=== PATIENT | female | born 1975 | race Caucasian/White ===

== ENCOUNTER 2016-05-06 05:17 | Emergency (ER) | payer OTHER ==
[~2016-05-06] VITALS: Ht 170.1 cm; Wt 90.7 kg
[~2016-05-06 05:17] MED LIST: BACTRIM DS 8001 TA1 PO; CLARITIN10 MG PO; DAYPRO600 M1 PO; EPIPEN 2-PAK1 MG/M1 MR; FLAGYL500 MG PO; FLEXERIL10 MG PO; HYDR25T PO; IBU-8800 MG PO; KEFLEX500 MG PO; MOTRIN800 MG PO; PREDNICOT10 MG PO; ROBAXIN750 MG PO; SEPTRA DS 800 M1 TAB PO; TESSALON PERLE200 MG PO; ULTRAM50 MG PO
[2016-05-06 05:24] VITALS: BP 147/104
[2016-05-06] MEDS ORDERED: BACTRIM DS 8001 TA1 PO (06:58)
[2016-05-07 17:06] LABS: LYME AB/TOTAL IMMUNOGLOBULINS <0.91 ISR (0.00-0.90)
== END 2016-05-06 07:04 | disposition home or self-care (01) ==
LOC: ED 05:17
PROVIDERS: Emergency Medicine
DX: L03.311 Cellulitis of abdominal wall (principal); L03.314 Cellulitis of groin; F17.200 Nicotine dependence, unspecified, uncomplicated; Z88.0 Allergy status to penicillin

== ENCOUNTER 2017-08-11 20:07 | Emergency (ER) | payer OTHER ==
[~2017-08-11] VITALS: Ht 170.1 cm; Wt 90.7 kg
[2017-08-11 20:07] VITALS: BP 139/77
[2017-08-11] MEDS ORDERED: DOXYCYCLINE100 M3 PO (20:16)
== END 2017-08-11 20:25 | disposition home or self-care (01) ==
LOC: ED 20:07
DX: L03.116 Cellulitis of left lower limb (principal); L03.115 Cellulitis of right lower limb; F17.200 Nicotine dependence, unspecified, uncomplicated; Z88.0 Allergy status to penicillin

== ENCOUNTER 2017-09-05 15:11 | Emergency (ER) | payer OTHER ==
[~2017-09-05] VITALS: Wt 81.6 kg
[~2017-09-05 15:11] MED LIST changes: +DOXYCYCLINE100 M3 PO
[2017-09-05 15:16] VITALS: BP 114/82
[2017-09-05] MEDS ORDERED: SEPTDS PO (16:02)
== END 2017-09-05 16:23 | disposition home or self-care (01) ==
LOC: ED 15:11
DX: S90.561A Insect bite (nonvenomous), right ankle, initial encounter (principal); L03.115 Cellulitis of right lower limb; Z88.0 Allergy status to penicillin; W57.XXXA Bitten or stung by nonvenomous insect and other nonvenomous arthropods, initial encounter; Y93.89 Activity, other specified; Y92.89 Other specified places as the place of occurrence of the external cause; Y99.9 Unspecified external cause status

== ENCOUNTER 2018-12-29 15:23 | Emergency (ER) | payer OTHER ==
[~2018-12-29] VITALS: Ht 167.6 cm; Wt 81.6 kg
[~2018-12-29 15:23] MED LIST changes: +CLINDAMYCIN HC300 MG PO; +SEPTDS PO
[2018-12-29 15:24] VITALS: BP 151/80
[2018-12-29] MEDS ORDERED: CLINDAMYCIN HC300 MG PO (15:36)
[2018-12-29] MEDS ORDERED: PREDNISONE20 M1 PO (15:36)
== END 2018-12-29 15:53 | disposition home or self-care (01) ==
LOC: ED 15:23
DX: S60.561A Insect bite (nonvenomous) of right hand, initial encounter (principal); L08.9 Local infection of the skin and subcutaneous tissue, unspecified; Z88.0 Allergy status to penicillin; Z79.2 Long term (current) use of antibiotics; W57.XXXA Bitten or stung by nonvenomous insect and other nonvenomous arthropods, initial encounter; Y93.89 Activity, other specified; Y92.89 Other specified places as the place of occurrence of the external cause; Y99.8 Other external cause status

== ENCOUNTER 2019-01-16 11:40 | Emergency (ER) | payer OTHER ==
[~2019-01-16] VITALS: Ht 170.1 cm; Wt 90.7 kg
--- NOTE | ~2019-01-16 | EKG ---
[place], [place] ELECTROCARDIOGRAM REPORT NAME: GABE MARIN UNIT #: [id number] ROOM: DOCTOR: KERLINE DRAFT REPORT BIRTHDATE: [address] [facility] Test Date: 2019-01-16 Test Time: 12:06:54 Pat Name: GABE MARIN Department: Room: Gender: F Outreach Counselor: : 1975 Requested By: QUANG RAYMUNDO Order Number: [id number] Reading MD: Gordo Goldstein MD Measurements Intervals [place] Rate: 94 P: 70 NV: 146 QRS: 26 QRSD: 84 T: 57 QT: 354 QTc: 443 Interpretive Statements Sinus rhythm No previous ECG available for comparison Electronically Signed On 01-17-2019 6:10:52 PST by Gordo Goldstein MD CM:EKGRPT:ELECTROCARDIOGRAM REPORT [id number] QUANG HAN DRAFT REPORT QUANG RAYMUNDO DO
[~2019-01-16 11:40] MED LIST changes: +PREDNISONE20 M1 PO
[2019-01-16 12:19] LABS: BASO % 0.3 % (0.0-1.0); EOS # 0.1 10*3/uL (0.0-0.4); EOS % 0.9 % (1.0-4.0); HEMATOCRIT 44.3 % (37.0-47.0); HEMOGLOBIN 14.7 g/dl (12.0-16.0); LYMPH % 25.5 % (27.0-41.0); MEAN CELL VOLUME 94.3 fl (81.0-99.0); MEAN CORPUSCULAR HGB 31.3 pg (27.0-31.0); MEAN CORPUSCULAR HGB CONC 33.2 g/dl (33.0-37.0); MEAN PLATELET VOLUME 10.4 fl (9.6-12.3); MONO # 0.6 10*3/uL (0.1-1.0); MONO % 7.5 % (3.0-9.0); NEUT # 5.2 10*3/uL (2.3-7.9); NEUT % 65.4 % (47.0-73.0); PLATELET COUNT AUTOMATED 289 10*3/uL (130-400); RED CELL DISTRI WIDTH 12.9 % (0-14.5)
[2019-01-16 12:33] LABS: BILIRUBIN 1+ (NEGATIVE); BLOOD 3+ (NEGATIVE); CLARITY SL CLOUDY (CLEAR); COLOR YELLOW (YELLOW); GLUCOSE NEGATIVE (NEGATIVE); KETONE NEGATIVE (NEGATIVE); LEUKO ESTERASE NEGATIVE (NEGATIVE); NITRITE NEGATIVE (NEGATIVE); SPECIFIC GRAVITY >= 1.030 (1.005-1.030); UROBILINOGEN 0.2 E.U./dl (0.2-1.0)
[2019-01-16 12:37] LABS: ALBUMIN 3.8 gm/dl (3.1-4.5); ALKALINE PHOSPHATASE 85 U/L (45-117); BUN 8 mg/dl (7-24); CHLORIDE 109 mmol/L (98-107); CREATININE 0.68 mg/dL (0.55-1.02); LIPASE 49 U/L (73-393); POTASSIUM 3.6 mmol/L (3.5-5.1); SGOT/AST 19 IU/L (3-35); SGPT/ALT 19 U/L (12-78); SODIUM 139 mmol/L (136-145); TOTAL PROTEIN 7.8 gm/dL (6.4-8.2)
[2019-01-16 12:38] VITALS: BP 146/86
[2019-01-16 12:40] LABS: BETA-HCG, QUANT < 1.0 mIU/mL (1-3)
[2019-01-16 12:47] LABS: RBC TNTC rbc/hpf (0-2)
[2019-01-16 12:48] LABS: BACTERIA 2+; CALCIUM OXALATE CRYSTALS TRACE
[2019-01-16] MEDS ORDERED: PREDNISONE50 MG PO (13:53)
[2019-01-16] MEDS ORDERED: ZITHROMAX250 MG PO (13:53)
== END 2019-01-16 14:05 | disposition home or self-care (01) ==
LOC: ED 11:40
PROVIDERS: Emergency Medicine
DX: J20.9 Acute bronchitis, unspecified (principal); M54.6 Pain in thoracic spine; F17.200 Nicotine dependence, unspecified, uncomplicated; Z88.0 Allergy status to penicillin; Z79.2 Long term (current) use of antibiotics; Z79.899 Other long term (current) drug therapy

== ENCOUNTER 2019-06-18 17:38 | Emergency (ER) | payer OTHER ==
[~2019-06-18] VITALS: Ht 172.7 cm; Wt 104.3 kg
[~2019-06-18 17:38] MED LIST changes: +PREDNISONE50 MG PO; +ZITHROMAX250 MG PO
[2019-06-18 17:43] VITALS: BP 136/71
[2019-06-18] MEDS ORDERED: PREDNISONE10 MG PO (19:02)
[2019-06-18] MEDS ORDERED: VISTARIL50 MG PO (19:02)
== END 2019-06-18 19:07 | disposition home or self-care (01) ==
LOC: ED 17:38
DX: L25.9 Unspecified contact dermatitis, unspecified cause (principal); Z88.0 Allergy status to penicillin; Z79.2 Long term (current) use of antibiotics; Z79.899 Other long term (current) drug therapy

== ENCOUNTER 2020-10-24 16:51 | Emergency (ER) | payer OTHER ==
[~2020-10-24] VITALS: Wt 90.7 kg
[~2020-10-24 16:51] MED LIST changes: +PREDNISONE10 MG PO; +VISTARIL50 MG PO
[2020-10-24 17:05] VITALS: BP 139/84
[2020-10-24] MEDS ORDERED: DOXYCYCLINE HY150 M2 PO (17:34)
== END 2020-10-24 17:44 | disposition home or self-care (01) ==
LOC: ED 16:51
DX: L03.114 Cellulitis of left upper limb (principal); Z79.899 Other long term (current) drug therapy; Z79.2 Long term (current) use of antibiotics; Z88.0 Allergy status to penicillin

== ENCOUNTER 2021-02-11 18:30 | Emergency (ER) | payer OTHER ==
[~2021-02-11 18:30] MED LIST changes: +DOXYCYCLINE HY150 M2 PO
[2021-02-11 18:34] VITALS: BP 140/78
[2021-02-11] MEDS ORDERED: IBUPROFEN600 MG PO (21:32)
[2021-02-11] MEDS ORDERED: SEPTDS PO (21:32)
== END 2021-02-11 23:56 | disposition home or self-care (01) ==
LOC: ED 18:30
DX: L02.511 Cutaneous abscess of right hand (principal); F17.200 Nicotine dependence, unspecified, uncomplicated; Z88.0 Allergy status to penicillin; Z79.2 Long term (current) use of antibiotics; Z79.899 Other long term (current) drug therapy

== ENCOUNTER 2023-05-27 13:37 | Emergency (ER) | payer OTHER ==
[~2023-05-27] VITALS: Ht 167.6 cm; Wt 99.8 kg
[~2023-05-27 13:37] MED LIST changes: +IBUPROFEN600 MG PO
[2023-05-27] MEDS ORDERED: PREDNISONE50 MG PO (15:29)
[2023-05-27 15:30] VITALS: BP 132/68
== END 2023-05-27 15:30 | disposition home or self-care (01) ==
LOC: ED 13:37
DX: B34.9 Viral infection, unspecified (principal); Z20.822 Contact with and (suspected) exposure to COVID-19; Z88.0 Allergy status to penicillin

== ENCOUNTER → 2024-08-08 | Outpatient (CLI) | payer BC ==
[2024-08-08 11:54] LABS: BASO % 0.4 % (0.0-1.0); EOS # 0.1 10*3/uL (0.0-0.4); EOS % 1.9 % (1.0-4.0); HEMATOCRIT 44.1 % (37.0-47.0); MEAN CELL VOLUME 90.6 fl (81.0-99.0); MEAN CORPUSCULAR HGB CONC 33.1 g/dl (33.0-37.0); MEAN PLATELET VOLUME 9.4 fl (9.6-12.3); MONO # 0.4 10*3/uL (0.1-1.0); MONO % 5.7 % (3.0-9.0); NEUT # 4.4 10*3/uL (2.3-7.9); NEUT % 58.2 % (47.0-73.0); PLATELET COUNT AUTOMATED 350 10*3/uL (130-400); RED BLOOD COUNT 4.87 10*6/uL (4.10-5.10); RED CELL DISTRI WIDTH 12.6 % (0-14.5); WHITE BLOOD COUNT 7.5 10*3/uL (4.8-10.8)
[2024-08-08 12:35] LABS: ALKALINE PHOSPHATASE 116 U/L (46-116); BUN 16 mg/dl (9-23); CHLORIDE 105 mmol/L (98-107); CHOLESTEROL 200 mg/dL (<200); LDL CHOLESTEROL 129 mg/dL (9-159); POTASSIUM 4.1 mmol/L (3.4-5.1); SGPT/ALT 33 U/L (5-49); TOTAL PROTEIN 7.1 gm/dL (6.0-8.0); TRIGLYCERIDES 106 mg/dl (<150)
== END | disposition home or self-care (01) ==
LOC: LAB 11:36
PROVIDERS: ATTEND Nurse Practitioner Family
DX: Z13.0 Encounter for screening for diseases of the blood and blood-forming organs and certain disorders involving the immune mechanism (principal); Z13.29 Encounter for screening for other suspected endocrine disorder; Z13.1 Encounter for screening for diabetes mellitus; Z13.220 Encounter for screening for lipoid disorders